=== PATIENT | male | born 1980 | race American Indian/Alaskan Native ===

== ENCOUNTER 2017-08-03 11:05 | Emergency (ER) | payer MEDICARE ==
[2017-08-03 12:42] VITALS: BP 143/103
== END 2017-08-03 12:43 | disposition home or self-care (01) ==
LOC: ED 11:05
DX: T78.40XA Allergy, unspecified, initial encounter (principal); X58.XXXA Exposure to other specified factors, initial encounter
CPT/HCPCS: 99282